=== PATIENT | male | born 1975 | race Two or more races ===

== ENCOUNTER 2023-01-06 06:53 | Emergency (ER) | payer OTHER ==
[~2023-01-06] VITALS: Ht 177.8 cm; Wt 183.7 kg
[2023-01-06] MEDS ORDERED: DICLOFENAC POTA50 MG (07:08)
[2023-01-06] MEDS ORDERED: METOPROLOL TART50 MG (07:08)
[2023-01-06] MEDS ORDERED: DOXAZOSIN MESYLA8 MG (07:08)
[2023-01-06] MEDS ORDERED: FAMOTIDINE40 MG (07:08)
[2023-01-06] MEDS ORDERED: IRBESARTAN300 MG (07:08)
[2023-01-06] MEDS ORDERED: LAMICTAL200 MG (07:08)
[2023-01-06] MEDS ORDERED: METFORMIN HCL500 M4 (07:10)
== END 2023-01-06 11:39 | disposition home or self-care (01) ==
LOC: ER 06:53
DX: R10.9 Unspecified abdominal pain (principal); I10 Essential (primary) hypertension; E11.9 Type 2 diabetes mellitus without complications; Z79.84 Long term (current) use of oral hypoglycemic drugs